=== PATIENT | female | born 1960 | race Two or more races ===

== ENCOUNTER 2023-04-08 01:01 | Emergency (ER) | payer MEDICAID, OTHER ==
[~2023-04-08] VITALS: Ht 167.6 cm; Wt 65.0 kg
[2023-04-08 01:12] VITALS: BP 142/38; PULSE 109; RESP 16; O2SAT 98
[2023-04-08] MEDS ORDERED: ACETAMINOPHEN 325MG TABLET PO ONE (01:15)
[2023-04-08] MEDS ORDERED: METOCLOPRAMIDE HCL 10MG TABLET PO ONE (01:15)
[2023-04-08] MEDS ORDERED: METO-293 MT (01:47)
[2023-04-08] MEDS ORDERED: ACET-2708 MT (01:47)
[2023-04-08 01:59] VITALS: TEMP 98.5
== END 2023-04-08 01:52 | disposition home or self-care (01) ==
LOC: ER 01:01
DX: S09.90XA Unspecified injury of head, initial encounter (principal); V98.8XXA Other specified transport accidents, initial encounter; Y93.89 Activity, other specified; Y92.89 Other specified places as the place of occurrence of the external cause; Y99.8 Other external cause status
CPT/HCPCS: 99283; J8597